=== PATIENT | male | born 1995 | race Caucasian/White ===

== ENCOUNTER 2017-09-01 13:08 | Emergency (ER) | payer OTHER ==
[~2017-09-01] VITALS: Ht 182.9 cm; Wt 70.5 kg
[2017-09-01 13:18] VITALS: BP 118/60
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
[2017-09-01] MEDS ORDERED: KETOROLAC 30 MG/ML VIAL (J1885) IM ONE (15:45)
[2017-09-01] MEDS ORDERED: PERCOCET 5MG/325MG TAB PO ONE (15:45)
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
== END 2017-09-01 15:52 | disposition home or self-care (01) ==
LOC: M ED 13:08 → EDBD 13:08 → M ED 15:52
DX: Z04.1 Encounter for examination and observation following transport accident (principal); M54.9 Dorsalgia, unspecified; V43.62XA Car passenger injured in collision with other type car in traffic accident, initial encounter; Y92.410 Unspecified street and highway as the place of occurrence of the external cause; Y93.89 Activity, other specified; Y99.8 Other external cause status; F17.210 Nicotine dependence, cigarettes, uncomplicated
CPT/HCPCS: 70450; 72125; 72128; 72131; 96372; 99284; J1885